=== PATIENT | female | born 1995 | race American Indian/Alaskan Native ===

== ENCOUNTER 2023-12-09 09:31 | Day surgery (SDC) | payer OTHER ==
[~2023-12-09] VITALS: Ht 162.6 cm; Wt 59.0 kg
[2023-12-09] MEDS ORDERED: NS 1,000 ML IV SCH (10:20)
[2023-12-09] MEDS ORDERED: ROCURONIUM BROMIDE 50MG/5ML VIAL As Ordered ONE (11:02)
[2023-12-09] MEDS ORDERED: MIDAZOLAM INJ 2MG/2ML VIAL As Ordered ONE (11:02)
[2023-12-09] MEDS ORDERED: LIDOCAINE 2% 100MG/5ML SDV (FOR ANES.) As Ordered ONE (11:02)
[2023-12-09] MEDS ORDERED: propofoL 200 MG/20 ML VIAL As Ordered ONE (11:02)
[2023-12-09] MEDS ORDERED: fentaNYL 100 MCG/2 ML INJECTION As Ordered ONE (11:02)
[2023-12-09] MEDS ORDERED: ONDANSETRON 4MG 2ML VIAL As Ordered ONE (11:30)
[2023-12-09] MEDS ORDERED: ACETAMINOPHEN 1000MG 100ML IV BAG As Ordered ONE (11:31)
[2023-12-09] MEDS ORDERED: SUGAMMADEX SODIUM 500 MG/5 ML VIAL (BRIDION) As Ordered ONE (11:31)
[2023-12-09] MEDS ORDERED: fentaNYL 100 MCG/2 ML INJECTION IV PRN (11:55)
[2023-12-09] MEDS ORDERED: diphenhydrAMINE 50MG/ML VIAL IV PRN (11:55)
[2023-12-09] MEDS ORDERED: MEPERIDINE 25 MG/ML 1ML VIAL IV PRN (11:55)
[2023-12-09] MEDS: oxyCODONE 5MG TAB PO PRN (12:06)
[2023-12-09] MEDS: ONDANSETRON 4MG 2ML VIAL IV PRN (12:06)
[2023-12-09] MEDS: HYDROMORPHONE HCL 0.5 MG/ 0.5 ML SYRINGE IV PRN (12:07)
[2023-12-09] MEDS ORDERED: ONDANSETRON 4MG 2ML VIAL IV PRN (12:25)
[2023-12-09] MEDS ORDERED: PROMETHAZINE 25 MG TAB PO PRN (12:25)
[2023-12-09] MEDS ORDERED: LR 1,000 ML IV SCH (12:25)
[2023-12-09] MEDS: METOCLOPRAMIDE INJ 10MG/2ML VIAL IV PRN (13:39)
[2023-12-09 14:20] VITALS: BP 122/64; TEMP 96.9; O2SAT 99
== END 2023-12-09 14:25 | disposition home or self-care (01) ==
LOC: M SDC 09:31
PROVIDERS: ATTEND Otolaryngology
DX: J35.01 Chronic tonsillitis (principal); J45.909 Unspecified asthma, uncomplicated; F17.200 Nicotine dependence, unspecified, uncomplicated
CPT/HCPCS: 42826; 81025; 88302; J0131; J0665; J1100; J1171; J2250; J2405; J2765; J3010